=== PATIENT | female | born 1985 | race American Indian/Alaskan Native ===

== ENCOUNTER 2021-08-30 10:02 | Emergency (ER) | payer OTHER ==
--- NOTE | 2021-08-30 11:01 | Emergency Department Report ---
ED Abdominal Pain HPI - General Chief Complaint: Abdominal Pain Stated Complaint: ABD PAIN/VOMITING PUI?: No Time Seen by Provider: 08/30/21 11:00 Source: patient Mode of arrival: Ambulatory Limitations: No Limitations - History of Present Illness Initial Comments: 38 YO AA COMES TO ER CO ABD PAIN ENDORSES VOMITING X 1 AND 1 SOFT BM SHE STATE IN THE PAST WHEN SHE HAS FELT THIS WAY IT WAS A UTI; OR HAS BEEN RELATED TO HER ANXIETY AND DEPRESSION ABOUT 5 YEARS AGO SHE HAD EGD AND COLONSCOPY AND THEY TOLD HER THE PAIN WAS ANXI ETY AMBULATORY AND NON ILL APPEARING ON EXAM PMH BCP OXYBUT LMP 2 WEEKS AGO NO VAG BLEEDING NO VAG DISCHARGE MD Complaint: abdominal pain -: Gradual, days(s) Location: diffuse Radiation: none Quality: cramping Consistency: constant Associated Symptoms: denies other symptoms, vomiting (1), diarrhea (1). denies: nausea, fever, chills, constipation, dysuria, hematemesis, hematochezia, melena, anorexia, syncope - Related Data Previous Rx's Medication Instructions Recorded Last Taken Type Ondansetron [Zofran Odt] 4 mg PO Q8HR PRN #10 tab.rapdis 08/30/21 Unknown Rx Allergies Allergy/AdvReac Type Severity Reaction Status Date / Time No Known Allergies Allergy Verified 08/30/21 10:52 ED Review of Systems ROS: Stated complaint: ABD PAIN/VOMITING Other details as noted in HPI Comment: All other systems reviewed and negative ED Past Medical Hx - Past Medical History Previous Medical History?: Yes Additional medical history: A/C ABD PAIN. ANXIETY /MD - Surgical History Past Surgical History?: Yes Additional Surgical History: CARPAL TUNNEL BILATERAL - Family History Family history: no significant - Social History Smoking Status: Never Smoker Substance Use Type: None - Medications Home Medications: Home Medications Medication Instructions Recorded Confirmed Last Taken Type Ondansetron [Zofran Odt] 4 mg PO Q8HR PRN #10 tab.rapdis 08/30/21 Unknown Rx ED Physical Exam - General Limitations: No Limitations General appearance: alert, in no apparent distress - Head Head exam: Present: atraumatic, normocephalic - Eye Eye exam: Present: normal appearance - ENT ENT exam: Present: mucous membranes moist - Neck Neck exam: Present: normal inspection - Respiratory Respiratory exam: Present: normal lung sounds bilaterally. Absent: respiratory distress - Cardiovascular Cardiovascular Exam: Present: regular rate, normal rhythm. Absent: systolic murmur, diastolic murmur, rubs, gallop - GI/Abdominal GI/Abdominal exam: Present: soft, normal bowel sounds - Extremities Exam Extremities exam: Present: normal inspection - Back Exam Back exam: Present: normal inspection - Neurological Exam Neurological exam: Present: alert, oriented X3 - Psychiatric Psychiatric exam: Present: normal affect, normal mood - Skin Skin exam: Present: warm, dry, intact, normal color. Absent: rash ED Course Vital Signs 08/30/21 08/30/21 08/30/21 10:54 11:01 11:02 Temperature 98.3 F 98.3 F Pulse Rate 68 68 Respiratory 16 16 Rate Blood Pressure 142/88 Blood Pressure 142/88 [Left] O2 Sat by Pulse 97 97 97 Oximetry 08/30/21 12:57 Temperature 98.0 F Pulse Rate 59 L Respiratory 14 Rate Blood Pressure Blood Pressure 111/65 [Left] O2 Sat by Pulse 99 Oximetry ED Medical Decision Making - Lab Data Result diagrams: 08/30/21 11:11 08/30/21 11:11 - Medical Decision Making Labs 08/30/21 08/30/21 08/30/21 11:11 11:11 11:11 WBC 10.4 RBC 4.71 Hgb 13.9 Hct 41.1 MCV 87 MCH 30 MCHC 34 RDW 13.4 Lymph % (Auto) 22.0 [facility] % (Auto) 2.8 Eos % (Auto) 0.2 Baso % (Auto) 0.6 Lymph # (Auto) 2.3 [facility] # (Auto) 0.3 Eos # (Auto) 0.0 Baso # (Auto) 0.1 Seg Neutrophils % 74.4 H Seg Neutrophils # 7.8 H Sodium 134 L Potassium 4.4 Chloride 102.1 Carbon Dioxide 20 L Anion Gap 16 BUN 5 L Creatinine 0.6 Estimated GFR > 60 BUN/Creatinine Ratio 8 Glucose 95 Calcium 9.0 Total Bilirubin 0.50 Direct Bilirubin < 0.2 Indirect Bilirubin 0.3 AST 19 ALT 9 Alkaline Phosphatase 68 Total Protein 7.8 Albumin 3.9 Albumin/Globulin Ratio 1.0 Lipase 19 HCG, Qual Negative Urine Color Urine Turbidity Urine pH Ur Specific Sullivan Urine Protein Urine Glucose (UA) Urine Ketones Urine Blood Urine Nitrite Urine Bilirubin Urine Urobilinogen Ur Leukocyte Esterase Urine WBC (Auto) Urine RBC (Auto) U Epithel Cells (Auto) Urine Mucus 08/30/21 11:45 WBC RBC Hgb Hct MCV MCH MCHC RDW Lymph % (Auto) [facility] % (Auto) Eos % (Auto) Baso % (Auto) Lymph # (Auto) [facility] # (Auto) Eos # (Auto) Baso # (Auto) Seg Neutrophils % Seg Neutrophils # Sodium Potassium Chloride Carbon Dioxide Anion Gap BUN Creatinine Estimated GFR BUN/Creatinine Ratio Glucose Calcium Total Bilirubin Direct Bilirubin Indirect Bilirubin AST ALT Alkaline Phosphatase Total Protein Albumin Albumin/Globulin Ratio Lipase HCG, Qual Urine Color Yellow Urine Turbidity Clear Urine pH 5.0 Ur Specific Sullivan 1.013 Urine Protein <15 mg/dl Urine Glucose (UA) Neg Urine Ketones Tr Urine Blood Sm Urine Nitrite Neg Urine Bilirubin Neg Urine Urobilinogen < 2.0 Ur Leukocyte Esterase Neg Urine WBC (Auto) < 1.0 Urine RBC (Auto) 1.0 U Epithel Cells (Auto) 1.0 Urine Mucus Few Vital Signs 08/30/21 08/30/21 08/30/21 10:54 11:01 11:02 Temperature 98.3 F 98.3 F Pulse Rate 68 68 Respiratory 16 16 Rate Blood Pressure 142/88 Blood Pressure 142/88 [Left] O2 Sat by Pulse 97 97 97 Oximetry 08/30/21 12:57 Temperature 98.0 F Pulse Rate 59 L Respiratory 14 Rate Blood Pressure Blood Pressure 111/65 [Left] O2 Sat by Pulse 99 Oximetry LABS NOTED UA NOTED VSS NO FEVER NO CHILLS EXAM UNREMARKABLE TAKING PO AMBULATORY NON ILL APPEARING DC HOME WITH DC PLAN OF CARE-INCLUDING DIET, ACTIVITY AND FOLLOW UP. SHE VE RBALIZES UNDERSTANDING - Differential Diagnosis GERD/GASTRITIS/CHOLEY Critical care attestation.: If time is entered above; I have spent that time in minutes in the direct care of this critically ill patient, excluding procedure time. ED Disposition Clinical Impression: Abdominal pain Disposition: 01 HOME / SELF CARE / HOMELESS Is pt being admited?: No Does the pt Need Aspirin: No Condition: Stable Instructions: Abdominal Pain, Adult, [id number], Abdominal Pain (ED) Additional Instructions: BLAND DIET BANANA APPLESAUCE RICE TOAST INC TOLERATED ZOFRAN FOR NAUSEA FOLLOW UP WITH PCP AND OR GI WITHIN 48 HOURS REFERRALS BELOW ALL TESTS NORMAL TODAY Prescriptions: Ondansetron [Zofran Odt] 4 mg PO Q8HR PRN #10 tab.rapdis PRN Reason: Vomiting Referrals: DEEP ALVARES MD [Staff Physician] - 3-5 Days SERAFIN WESTON MD [Staff Physician] - 3-5 Days Time of Disposition: 13:32
[2021-08-30 11:35] LABS: Basophils # (Auto) 0.1 K/mm3 (0.0-0.1); Basophils % (Auto) 0.6 % (0.0-1.8); Eosinophils % (Auto) 0.2 % (0.0-4.3); Hematocrit 41.1 % (30.3-42.9); Hemoglobin 13.9 gm/dl (10.1-14.3); Lymphocytes # (Auto) 2.3 K/mm3 (1.2-5.4); Mean Corpuscular HGB Conc 34 % (30-34); Mean Corpuscular Volume 87 fl (79-97); Monocytes # (Auto) 0.3 K/mm3 (0.0-0.8); Monocytes % (Auto) 2.8 % (0.0-7.3); Red Blood Count 4.71 M/mm3 (3.65-5.03); Red Cell Distribution Width 13.4 % (13.2-15.2)
[2021-08-30 11:54] LABS: Alanine Aminotransferase 9 units/L (7-56); Albumin 3.9 g/dL (3.9-5); Blood Urea Nitrogen 5 mg/dL (7-17); Hemolysis Index 99
[2021-08-30 11:57] LABS: BUN/Creatinine Ratio 8; Bilirubin,Direct < 0.2 mg/dL (0-0.2)
[2021-08-30 12:06] LABS: Bilirubin,Urine NEG (Negative); Blood,Urine SM (Negative); Color,Urine Yellow (Yellow); Mucus,Urine FEW /HPF; Protein,Urine <15 mg/dL mg/dL (Negative); Urobilinogen,Urine < 2.0 mg/dL (<2.0); WBC,Urine < 1.0 /HPF (0.0-6.0)
[2021-08-30 12:57] VITALS: BP 111/65
[2021-08-30 16:07] LABS: Platelet Count 148 K/mm3 (140-440)
== END 2021-08-30 14:08 | disposition home or self-care (01) ==
LOC: ED 10:02
DX: R10.84 Generalized abdominal pain (principal); F41.9 Anxiety disorder, unspecified; Z98.890 Other specified postprocedural states
CPT/HCPCS: 36415; 80048; 80076; 81001; 83690; 84703; 85025; 99283